=== PATIENT | male | born 1995 ===

== ENCOUNTER 2018-06-04 14:47 | Emergency (ER) | payer OTHER ==
[2018-06-04] MEDS ORDERED: Al Hydrox/Mg Hydrox/Simet LIQ* 30 ML UDC PO ONE (15:22)
--- NOTE | 2018-06-04 15:27 | ED ---
Abdominal Pain/Male - HPI Summary HPI Summary: pain off and on in the last year, midepigastric with radation to the back, and never diagnosed - History of Current Complaint Chief Complaint: UCAbdominalPain Stated Complaint: ABDOMINAL PAIN Time Seen by Provider: 06/04/18 15:02 Hx Obtained From: Patient Onset/Duration: Worse Since - in the last several days, but has been present since last year. Timing: Intermittent, Lasting Hours Severity Initially: Moderate Severity Currently: Moderate Pain Intensity: 5 Location: Epigastric Radiates to: Back Character: Burning Aggravating Factor(s): Nothing Alleviating Factor(s): Antacids Associated Signs And Symptoms: Positive: Nausea - Allergies/Home Medications Allergies/Adverse Reactions: Allergies Allergy/AdvReac Type Severity Reaction Status Date / Time No Known Allergies Allergy Verified 06/04/18 14:56 Home Medications: Home Medications Acetaminophen [Tylenol] 325 mg PO ONCE PRN 06/04/18 [History Confirmed 06/04/18] Al Hydrox/Mg Hydrox/Caron BULK* [Mylanta - BULK BOT*] 1 evelyne PO ONCE PRN 06/04/18 [History Confirmed 06/04/18] Calcium Carbonate [Tums] 500 mg PO ONCE PRN 06/04/18 [History Confirmed 06/04/18 ] PMH/Surg Hx/FS Hx/Imm Hx Previously Healthy: Yes - Surgical History Surgery Procedure, Year, and Place: T&A. wisdom teeth. fracture arm repair Infectious Disease History: No Infectious Disease History: Denies: Traveled Outside the [place] in Last 30 Days - Social History Alcohol Use: None Substance Use Type: Reports: None Smoking Status (MU): Never Smoked Tobacco Review of Systems Constitutional: Negative Eyes: Negative ENT: Negative Cardiovascular: Negative Respiratory: Negative Positive: Abdominal Pain, Nausea Genitourinary: Negative Musculoskeletal: Negative Skin: Negative All Other Systems Reviewed And Are Negative: Yes Physical Exam - Summary Physical Exam Summary: wdwmn male in no acute distress Triage Information Reviewed: Yes Vital Signs On Initial Exam: Initial Vitals Temp Pulse Resp BP Pulse Ox 36.1 C 78 18 159/94 98 06/04/18 14:51 06/04/18 14:51 06/04/18 14:51 06/04/18 14:51 06/04/18 14:51 Vital Signs Reviewed: Yes Appearance: Positive: Well-Appearing Skin: Positive: Warm, Skin Color Reflects Adequate Perfusion Head/Face: Positive: Normal Head/Face Inspection Eyes: Positive: Normal ENT: Positive: Normal ENT inspection Neck: Positive: Supple Cardiovascular: Positive: Normal Abdomen Description: Positive: Nontender Bowel Sounds: Positive: Present Diagnostics - Vital Signs Vital Signs Temp Pulse Resp BP Pulse Ox 06/04/18 14:51 36.1 C 78 18 159/94 98 - Laboratory Lab Statement: Any lab studies that have been ordered have been reviewed, and results considered in the medical decision making process. Abdominal Pain Fem Course/Dx - Diagnoses Provider Diagnoses: Peptic disease Discharge - Sign-Out/Discharge Documenting (check all that apply): Patient Departure All imaging exams completed and their final reports reviewed: No Studies - Discharge Plan Condition: Good Disposition: HOME Prescriptions: Omeprazole 40 mg PO DAILY 30 Days #30 capsule. Patient Education Materials: Peptic Ulcer (ED) Referrals: No Primary Care Phys,NOPCP [Primary Care Provider] - Juan Carlos Scanlon MD [Medical Doctor] - - Billing Disposition and Condition Condition: GOOD Disposition: Home
[2018-06-04 16:21] VITALS: BP 148/80
[2018-06-04 19:12] LABS: Albumin 4.7 g/dL (3.2-5.2); Anion Gap 8 mmol/L (2-11); CO2 Carbon Dioxide 28 mmol/L (22-32); Chloride 100 mmol/L (101-111); Potassium 3.6 mmol/L (3.5-5.0); Sodium 136 mmol/L (135-145)
[2018-06-04 19:18] LABS: ALT 29 U/L (7-52); AST 16 U/L (13-39); Albumin/Globulin Ratio 1.5 (1-3); Alkaline Phosphatase 71 U/L (34-104); BUN/Creatinine Ratio 11.3 (8-20); Blood Urea Nitrogen 9 mg/dL (6-24); EGFR Non-African American 119.8 (>60); Globulin 3.2 g/dL (2-4); Glucose 119 mg/dL (70-100); Total Protein 7.9 g/dL (6.4-8.9)
== END 2018-06-04 15:10 | disposition home or self-care (01) ==
LOC: UCEAST 14:47
DX: K30 Functional dyspepsia (principal); R11.0 Nausea
CPT/HCPCS: 36415; 80053; 83690; 99212; A9270-GY; G0463

== ENCOUNTER 2018-07-22 07:19 | Emergency (ER) | payer OTHER ==
[2018-07-22] MEDS ORDERED: NS 0.9% 1000 ML** 1,000 ML IV ONE (07:26)
--- NOTE | 2018-07-22 07:32 | ED ---
Abdominal Pain/Male - HPI Summary HPI Summary: Patient is a 22 y/o male who presents to the ED c/o abdominal pain. At 4:00 this morning his pain began and has been worsening. Patient reports epigastric abdominal pain that is burning in sensation. He rates his pain as a 7/10 in severity. Patients sx are worsened by lying flat and alleviated by sitting upright. He denies any pain with eating. He endorses some belching. Patients mother gave him Mylanta and he subsequently had an episode of emesis. He denies any hematemesis, hematochezia, melena, diarrhea, constipation, dysuria, or hematuria. Patient first began to have these symptoms in April 2018 and was given 30 days worth of Prilosec, which completely resolved his symptoms. He is scheduled for a follow up appointment for his symptoms later today. - History of Current Complaint Chief Complaint: EDAbdPain Stated Complaint: ABD PAIN PER MOTHER Time Seen by Provider: 07/22/18 07:29 Hx Obtained From: Patient, Family/In File Operator - Mother Onset/Duration: Gradual Onset, Lasting Hours - 4:00 this morning, Worse Since Timing: Constant Severity Currently: Moderate Pain Intensity: 7 Pain Scale Used: 0-10 Numeric Location: Epigastric Radiates: No Character: Burning Aggravating Factor(s): Other: - lying flat Alleviating Factor(s): Medications - Prilosec, Other: - sitting upright Associated Signs And Symptoms: Positive: Nausea, Vomiting. Negative: Constipation, Blood in Stool, Urinary Symptoms, Diarrhea - Allergies/Home Medications Allergies/Adverse Reactions: Allergies Allergy/AdvReac Type Severity Reaction Status Date / Time No Known Allergies Allergy Verified 07/22/18 07:24 PMH/Surg Hx/FS Hx/Imm Hx Respiratory History: Reports: Other Respiratory Problems/Disorders - Croup EENT History: Reports: Hx Tonsillitis, Other - otitis media - Surgical History Surgery Procedure, Year, and Place: T&A. wisdom teeth. fracture arm repair Infectious Disease History: No Infectious Disease History: Denies: Traveled Outside the [place] in Last 30 Days - Family History Known Family History: Negative: Other - GERD, gastritis, ulcers - Social History Alcohol Use: None Hx Substance Use: No Substance Use Type: Reports: None Hx Tobacco Use: No Smoking Status (MU): Never Smoked Tobacco Review of Systems Positive: Abdominal Pain, Vomiting, Nausea, Other - belching, NEGATIVE: melena, hematochezia, hematemesis, constipation. Negative: Diarrhea Negative: dysuria, hematuria All Other Systems Reviewed And Are Negative: Yes Physical Exam - Summary Physical Exam Summary: Appearance: Well appearing, mild pain distress Skin: warm, dry, reflects adequate perfusion Head/face: normal Eyes: EOMI, MADDIE ENT: mucous membranes moist Neck: supple, non-tender Respiratory: CTA, breath sounds present Cardiovascular: RRR, pulses symmetrical Abdomen: non-tender, soft Bowel Sounds: present Musculoskeletal: normal, strength/ROM intact Neuro: normal, sensory motor intact, A&Ox3 Triage Information Reviewed: Yes Vital Signs On Initial Exam: Initial Vitals Temp Pulse Resp BP Pulse Ox 97.6 F 70 16 167/109 100 07/22/18 07:23 07/22/18 07:23 07/22/18 07:23 07/22/18 07:23 07/22/18 07:23 Vital Signs Reviewed: Yes Diagnostics - Vital Signs Vital Signs Temp Pulse Resp BP Pulse Ox 07/22/18 07:23 97.6 F 70 16 167/109 100 - Laboratory Result Diagrams: 07/22/18 07:40 07/22/18 07:40 Lab Statement: Any lab studies that have been ordered have been reviewed, and results considered in the medical decision making process. Re-Evaluation - Re-Evaluation First Eval Re-Evaluation Time: 08:00 Change: Worse Comment: Pt is now actively vomiting. Second Eval Re-Evaluation Time: 09:02 Change: Unchanged Comment: Pt still has some discomfort. Third Eval Re-Evaluation Time: 09:52 Change: Improved Comment: Pt feels much better. Abdominal Pain Male Course/Dx - Course Course Of Treatment: Nurse's notes reviewed. Patient with recurring epigastric discomfort with negative lipase, LFTs. No right upper quadrant tenderness. Patient actually had a GI appointment scheduled for today that he missed come here. He likely has gastritis/peptic ulcer disease though without hematemesis or melena. Laboratories are stable and he was treated here with significant relief. He will continue on PPI, H2 khalida, Carafate and follow closely with his primary care physician, GI Dr Scanlon. - Diagnoses Differential Diagnosis/HQI/PQRI: Constipation, Gall Bladder Disease, Pancreatitis, Peptic Ulcer Disease Provider Diagnoses: Epigastric pain, Acute gastritis Discharge - Sign-Out/Discharge Documenting (check all that apply): Patient Departure - Discharge Patient Received Moderate/Deep Sedation with Procedure: No - Discharge Plan Condition: Improved Disposition: HOME Prescriptions: Famotidine TAB* [Pepcid 20 MG TAB*] 20 mg PO BID #20 tab Omeprazole 40 mg PO DAILY #90 cap Sucralfate TAB* [Carafate*] 1 gm PO ACHS #60 tab Patient Education Materials: Gastritis (ED) Forms: *Work Release Referrals: [facility] [Outside] [facility] [Outside] Additional Instructions: Avoid alcohol, caffeine, spicy foods as well as medications related to ibuprofen /Aleve and aspirin. Call to schedule appointment today with the [facility] for follow-up. You have also been given referral line to help with getting a primary care physician. If the symptoms continue he will need to see a GI doctor and possibly have endoscopy. Return with vomiting blood , unremitting pain, dark or maroon colored stool, worse or other concerns. - Billing Disposition and Condition Condition: IMPROVED Disposition: Home - Attestation Statements Document Initiated by Emmanuele: Yes Documenting Scribe: Marylou Michael Provider For Whom Mack is Documenting (Include Credential): Ole Alfaro MD Scribe Attestation: Marylou [place] scribed for Ole Alfaro MD on 07/22/18 at 1037. Scribe Documentation Reviewed: Yes Provider Attestation: The documentation as recorded by the Marylou bolton accurately reflects the service I personally performed and the decisions made by me, Ole Alfaro MD Status of Scribe Document: Viewed
[2018-07-22] MEDS ORDERED: Lidocaine 2% VISCOUS* 15 ML UDC PO ONE (07:34)
[2018-07-22] MEDS ORDERED: Al Hydrox/Mg Hydrox/Simet LIQ* 30 ML UDC PO ONE (07:34)
[2018-07-22] MEDS ORDERED: Pantoprazole TAB * 40 MG TAB PO ONE (07:34)
[2018-07-22] MEDS ORDERED: Famotidine TAB* 20 MG PO ONE (07:34)
[2018-07-22] MEDS ORDERED: Sucralfate TAB* 1 GM PO ONE (07:34)
[2018-07-22] MEDS ORDERED: Ondansetron INJ* 2 MG/ML VIAL IV ONE (07:49)
[2018-07-22] MEDS ORDERED: Ondansetron INJ* 2 MG/ML VIAL ONE (07:50)
[2018-07-22 08:04] LABS: ABS Basophils 0 10^3/ul (0-0.2); ABS Eosinophils 0.1 10^3/ul (0-0.6); ABS Lymphocytes 1.3 10^3/ul (1.0-4.8); ABS Monocytes 0.8 10^3/ul (0-0.8); ABS Neutrophils 7.7 10^3/ul (1.5-7.7); ABS Nucleated RBC 0 10^3/ul; Eosinophil % 0.7 %; Hematocrit 45 % (42-52); Hemoglobin 15.3 g/dl (14.0-18.0); Lymphocyte % 12.9 %; Mean Corpuscular HGB Conc 34 g/dl (31-36); Mean Corpuscular Hemoglobin 31 pg (27-31); Mean Corpuscular Volume 90 fL (80-94); Mean Platelet Volume 8.9 fL (7.4-10.4); Nucleated Red Blood Cells % 0; Platelet Count 156 10^3/ul (150-450); Red Blood Count 4.97 10^6/ul (4.00-5.40); Red Cell Distribution Width 13 % (10.5-15); White Blood Count 9.9 10^3/ul (3.5-10.8)
[2018-07-22 08:13] LABS: Albumin 4.6 g/dL (3.2-5.2); Albumin/Globulin Ratio 1.6 (1-3); BUN/Creatinine Ratio 17.7 (8-20); C Reactive Protein 2.02 mg/L (<8.01); Calcium 9.6 mg/dL (8.6-10.3); EGFR African American 147.1 (>60); EGFR Non-African American 121.5 (>60); Globulin 2.9 g/dL (2-4); Potassium 3.2 mmol/L (3.5-5.0); Total Bilirubin 0.6 mg/dL (0.2-1.0); Total Protein 7.5 g/dL (6.4-8.9)
[2018-07-22] MEDS ORDERED: DiMENhydriNATE IV* 50 MG/ML VIAL IV PUSH ONE (08:27)
[2018-07-22 08:30] LABS: Urine Appearance Cloudy; Urine Bilirubin Negative (Negative); Urine Blood Negative (Negative); Urine Color Yellow; Urine Glucose Negative (Negative); Urine Ketones 1+ (Negative); Urine Nitrite Negative (Negative); Urine Protein Negative (Negative); Urine Specific Gravity 1.017 (1.010-1.030); Urine Urobilinogen Negative (Negative)
[2018-07-22] MEDS ORDERED: Morphine VIAL* 4 MG/ML VIAL (1 ml vial) IV ONE (09:03)
[2018-07-22 11:11] VITALS: BP 135/89
== END 2018-07-22 11:12 | disposition home or self-care (01) ==
LOC: ED 07:19
DX: R10.13 Epigastric pain (principal); K29.00 Acute gastritis without bleeding
CPT/HCPCS: 36415; 80053; 81003; 83605; 83690; 85025; 86140; 96361; 96374; 96375; 99283; A9270-GY; J1240; J2270; J2405